=== PATIENT | male | born 1970 | race Caucasian/White ===

== ENCOUNTER 2017-07-17 19:12 | Emergency (ER) | payer OTHER ==
[~2017-07-17] VITALS: Ht 180.3 cm; Wt 86.3 kg
[~2017-07-17 19:12] MED LIST: FLEXERIL10 MG PO; MOBIC15 MG PO; NOHOMEMEDS; PERCOCET 10/1 TABLE1 PO; PERCOCET 10/1 TABLET PO
[2017-07-17 23:32] LABS: APPEARANCE CLEAR ((CLEAR)); BILIRUBIN NEGATIVE; BLOOD NEGATIVE; COLOR YELLOW ((YELLOW)); GLUCOSE (STRIP) >=500; KETONES NEGATIVE; LEUKOCYTES NEGATIVE; NITRITE NEGATIVE; PROTEIN (STRIP) NEGATIVE; SPECIFIC GRAVITY 1.039 (1.000-1.030); UCUL ADDED? NO; UROBILINOGEN 0.2 MG/DL (0.2-1.0)
[2017-07-17 23:42] LABS: HEMATOCRIT 47.6 % (38.0-50.0); HEMOGLOBIN 17.4 G/DL (12.5-16.6); MCHC 36.6 G/DL (30.0-36.0); MCV 87.7 FL (86-99); PLATELET COUNT 251 K/uL (156-360); RBC DIS.WIDTH-CV 11.9 % (11.8-14.6); RBC DIS.WIDTH-SD 38.5 % (39-53); RED BLOOD COUNT 5.43 M/uL (4.00-5.50); WHITE BLOOD COUNT 12.9 K/uL (4.1-10.2)
[2017-07-17 23:43] LABS: CARBON DIOXIDE (BICARBONATE) 28.7 MEQ/L (20-31)
[2017-07-17 23:55] LABS: ALBUMIN 4.7 g/dL (3.2-4.8); CHLORIDE 101 mEq/L (99-109); SODIUM 137 mEq/L (136-147)
[2017-07-17 23:57] LABS: GLUCOSE 333 mg/dL (70-99)
[2017-07-17 23:58] LABS: TOTAL PROTEIN 7.4 g/dL (6.4-8.3)
[2017-07-17 23:59] LABS: TOTAL BILIRUBIN 0.6 mg/dL (0.0-1.0)
[2017-07-18 00:01] LABS: ALKALINE PHOSPHATASE 51 IU/L (3-129); GFR ESTIMATE (CALCULATED) > 59 mL/min/ (58.99-99999)
[2017-07-18 00:02] LABS: UREA NITROGEN (BUN) 16 mg/dL (9-23)
[2017-07-18 00:03] LABS: AST (GOT) 12 IU/L (2-34)
[2017-07-18 00:04] LABS: ALT (GPT) 17 IU/L (3-49)
[2017-07-18] MEDS ORDERED: FLEXERIL10 MG PO (00:24)
[2017-07-18] MEDS ORDERED: PERCOCET 5/31 TABLET PO (00:24)
[2017-07-18] MEDS ORDERED: MOTRIN600 MG PO (00:24)
[2017-07-18 00:42] VITALS: BP 145/98
== END 2017-07-18 00:43 | disposition home or self-care (01) ==
LOC: EME 19:12
PROVIDERS: Physician Assistant
DX: S39.012A Strain of muscle, fascia and tendon of lower back, initial encounter (principal); E11.65 Type 2 diabetes mellitus with hyperglycemia; Z91.14 Patient's other noncompliance with medication regimen; I10 Essential (primary) hypertension; G89.29 Other chronic pain; F17.200 Nicotine dependence, unspecified, uncomplicated
CPT/HCPCS: 80053; 81003; 82010; 82803; 82948; 85027; 99281; 99284

== ENCOUNTER 2017-07-26 17:30 | Emergency (ER) | payer OTHER ==
[~2017-07-26] VITALS: Ht 180.3 cm; Wt 87.3 kg
[~2017-07-26 17:30] MED LIST changes: +MOTRIN600 MG PO; +PERCOCET 5/31 TABLET PO
[2017-07-26] MEDS ORDERED: PREDNISONE10 M1 PO (18:06)
[2017-07-26] MEDS ORDERED: VALIUM2 MG PO (18:06)
[2017-07-26 18:25] VITALS: BP 133/96
== END 2017-07-26 18:27 | disposition home or self-care (01) ==
LOC: EME 17:30
DX: S39.012A Strain of muscle, fascia and tendon of lower back, initial encounter (principal); E11.9 Type 2 diabetes mellitus without complications; I10 Essential (primary) hypertension; F17.200 Nicotine dependence, unspecified, uncomplicated
CPT/HCPCS: 99281; 99283; J7512

== ENCOUNTER 2017-09-09 02:57 | Inpatient (IN) | payer OTHER ==
[~2017-09-09] VITALS: Ht 154.9 cm; Wt 86.0 kg
[~2017-09-09 02:57] MED LIST changes: +PREDNISONE10 M1 PO; +VALIUM2 MG PO
[2017-09-09 03:55] LABS: HEMATOCRIT 39.6 % (38.0-50.0); HEMOGLOBIN 14.5 G/DL (12.5-16.6); MCH 32.4 PG (29.0-34.0); MCHC 36.6 G/DL (30.0-36.0); MCV 88.6 FL (86-99); PLATELET COUNT 198 K/uL (156-360); RBC DIS.WIDTH-CV 11.9 % (11.8-14.6); RBC DIS.WIDTH-SD 38.5 % (39-53); RED BLOOD COUNT 4.47 M/uL (4.00-5.50); WHITE BLOOD COUNT 14.7 K/uL (4.1-10.2)
[2017-09-09 04:04] LABS: CHLORIDE 97 mEq/L (99-109); SODIUM 132 mEq/L (136-147)
[2017-09-09 04:09] LABS: CREATININE 1.1 mg/dL (0.6-1.3); GFR ESTIMATE (CALCULATED) > 59 mL/min/ (58.99-99999)
[2017-09-09 04:10] LABS: UREA NITROGEN (BUN) 9 mg/dL (9-23)
[2017-09-09 04:21] LABS: GLUCOSE 618 mg/dL (70-99)
[2017-09-09 06:49] LABS: HDL CHOLESTEROL 28 MG/DL (Desirable>=40); LDL CHOLESTEROL 22 mg/dL (Desirable<100); NON-HDL CHOLESTEROL 89 mg/dL (Desirable<160); TOTAL CHOLESTEROL 117 mg/dL (Desirable<200); TRIGLYCERIDES 333 MG/DL (Normal: <150)
[2017-09-09 07:52] VITALS: BP 124/73
[2017-09-09 08:19] LABS: HEMOGLOBIN A1c (GLYCOHEMOGLOB) 12.6 % (Below 5.7)
[2017-09-09] MEDS ORDERED: PRINIVIL20 MG PO (10:12)
[2017-09-09] MEDS ORDERED: LITE COAT ASPI325 M1 PO (10:12)
[2017-09-09] MEDS ORDERED: GLUCOTROL10 MG PO (10:13)
[2017-09-09] MEDS ORDERED: GLUCOPHAGE500 MG PO (10:13)
[2017-09-09 12:24] VITALS: BP 140/71
[2017-09-09 15:55] VITALS: BP 145/96
[2017-09-10 00:22] VITALS: BP 120/65
[2017-09-10 09:45] LABS: HEMATOCRIT 44.8 % (38.0-50.0); HEMOGLOBIN 15.5 G/DL (12.5-16.6); MCHC 34.6 G/DL (30.0-36.0); MCV 89.6 FL (86-99); PLATELET COUNT 232 K/uL (156-360); RBC DIS.WIDTH-CV 11.9 % (11.8-14.6); RBC DIS.WIDTH-SD 38.8 % (39-53)
[2017-09-10 11:04] LABS: ALBUMIN 4.4 G/DL (3.2-4.8); ALKALINE PHOSPHATASE 52 IU/L (3-129); ALT (GPT) 11 IU/L (3-49); AST (GOT) 14 IU/L (2-34); CHLORIDE 102 MEQ/L (99-109); CREATININE 0.8 MG/DL (0.6-1.3); GFR ESTIMATE (CALCULATED) > 59 mL/min/ (58.99-99999); GLUCOSE 409 mg/dL (70-99); POTASSIUM 4.4 MEQ/L (3.7-5.4); SODIUM 135 MEQ/L (136-147); TOTAL BILIRUBIN 0.6 MG/DL (0.0-1.0); TOTAL PROTEIN 6.7 G/DL (6.4-8.3); UREA NITROGEN (BUN) 10 mg/dL (9-23)
[2017-09-10 15:46] VITALS: BP 173/77
[2017-09-10 16:37] LABS: APPEARANCE CLEAR ((CLEAR)); BILIRUBIN NEGATIVE; BLOOD NEGATIVE; COLOR YELLOW ((YELLOW)); GLUCOSE (STRIP) >=500; KETONES NEGATIVE; LEUKOCYTES NEGATIVE; NITRITE NEGATIVE; PROTEIN (STRIP) 30; SPECIFIC GRAVITY 1.038 (1.000-1.030); UCUL ADDED? NO; UROBILINOGEN 0.2 MG/DL (0.2-1.0)
[2017-09-10 17:03] LABS: BENZODIAZEPINES, URINE SCREEN Negative (200 ng/mL)
[2017-09-10 20:44] VITALS: BP 145/86
[2017-09-10 23:37] VITALS: BP 147/75
[2017-09-11 07:20] VITALS: BP 111/69
[2017-09-11] MEDS ORDERED: ATORVASTATIN CA40 MG PO (11:11)
[2017-09-11] MEDS ORDERED: ASPIR-LOW81 MG PO (11:11)
[2017-09-11] MEDS ORDERED: HUMALOG MI100 UNIT/5 SC (11:11)
[2017-09-11] MEDS ORDERED: PEN-VEE K,VEET500 MG PO (11:11)
[2017-09-11] MEDS ORDERED: PEN NEEDLE1 EAC9 MC (11:12)
[2017-09-11] MEDS ORDERED: ACCU-CHEK FAST1 EACH MC (11:13)
[2017-09-11] MEDS ORDERED: TEST STRIPS MC (11:13)
[2017-09-11] MEDS ORDERED: GLUCOMETER MC (11:13)
[2017-09-11 12:31] LABS: TREPONEMA ANTIBODY NEGATIVE (NEGATIVE)
[2017-09-11 13:02] LABS: HIV-1/2 AB/AG COMBO Nonreactive
== END 2017-09-11 15:51 | disposition home or self-care (01) | DRG 93 ==
LOC: EME 02:57 → 5SOUTH 05:43 → EDOF 05:43 → ENRESERV 05:44 → 5SOUTH 07:31
PROVIDERS: Emergency Medicine; Hospitalist; Internal Medicine; Physician Assistant Medical
DX: R20.2 Paresthesia of skin (principal); E11.65 Type 2 diabetes mellitus with hyperglycemia; E78.5 Hyperlipidemia, unspecified; I10 Essential (primary) hypertension; K04.7 Periapical abscess without sinus; F17.200 Nicotine dependence, unspecified, uncomplicated; F12.90 Cannabis use, unspecified, uncomplicated; Z66 Do not resuscitate; Z91.14 Patient's other noncompliance with medication regimen; Z91.19 Patient's noncompliance with other medical treatment and regimen
CPT/HCPCS: 70450; 70551; 72156; 80048; 80053; 80061; 80306 90; 81003; 82948; 83036; 85027; 86780; 87389; 93306; 93880; 99281; 99285; J1815; J3480; J7030

== ENCOUNTER 2017-10-11 01:44 | Emergency (ER) | payer OTHER ==
[~2017-10-11] VITALS: Ht 180.3 cm; Wt 84.1 kg
[~2017-10-11 01:44] MED LIST changes: +ACCU-CHEK FAST1 EACH MC; +ASPIR-LOW81 MG PO; +ATORVASTATIN CA40 MG PO; +GLUCOMETER MC; +GLUCOPHAGE500 MG PO; +GLUCOTROL10 MG PO; +HUMALOG MI100 UNIT/5 SC; +LITE COAT ASPI325 M1 PO; +PEN NEEDLE1 EAC9 MC; +PEN-VEE K,VEET500 MG PO; +PRINIVIL20 MG PO; +TEST STRIPS MC
[2017-10-11] MEDS ORDERED: FLEXERIL10 MG PO (03:17)
[2017-10-11] MEDS ORDERED: MEDROL DOSEPAK4 MG PO (03:17)
[2017-10-11 03:41] VITALS: BP 118/72
== END 2017-10-11 03:42 | disposition home or self-care (01) ==
LOC: EME 01:44
DX: M54.9 Dorsalgia, unspecified (principal); I10 Essential (primary) hypertension; E11.9 Type 2 diabetes mellitus without complications; Z79.4 Long term (current) use of insulin; F17.200 Nicotine dependence, unspecified, uncomplicated
CPT/HCPCS: 99281; 99283